=== PATIENT | male | born 1955 | race African-American/Black ===

== ENCOUNTER → 2019-01-16 | Day surgery (SDC) | payer BC ==
[~2019-01-16] MED LIST: CARV25TA PO; HEPARIN PF 500 UNIT/5 ML DISP.SYRIN. IVP ONE; HEPARIN PF 500 UNIT/5 ML DISP.SYRIN. ONE; INSU100I32 SQ; IV RINGERS,LACTATED 1000ML 1,000 ML IV SCH; LIDOCAINE 1% PF 2 ML VIAL. ID PRN; LIDOCAINE 2% PF 5 ML VIAL. ONE; METF10007 PO; MIDAZOLAM HCL/PF 2 MG/2 ML VIAL. IV PRN; PROPOFOL 20 ML IV ONE; SITA100T PO; ceFAZolin IM 1 GM VIAL IM ONE; fentaNYL PF VIAL 100 MCG/2 ML VIAL IV PRN
[2019-01-16 11:37] VITALS: BP 160/73
--- NOTE | 2019-01-16 22:20 | CONS ---
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 HISTORY OF PRESENT ILLNESS: This is a 64-year-old -Stateless male with past medical history significant for organic heart disease, diabetes, and hypertension. He was recently diagnosed with squamous cell cancer of the tonsil, undergoing treatments of radiation chemo and is having difficulties with swallowing and is here today for PEG placement. Risks and benefits of PEG placement including risk of hemorrhage, perforation, and cellulitis have been discussed and the patient is willing to proceed. Previous gallbladder surgery is noted, but no ulcer surgery is encountered and no previous history of hiatal hernias to preclude PEG placement elicited. PAST MEDICAL HISTORY: History of colonic polyps, hypertension, diabetes, organic heart disease, status post bypass surgery, and status post cholecystectomy. ALLERGIES: None. MEDICATIONS: Include Coreg, glargine insulin, metformin, and Januvia. SOCIAL HISTORY: He is a former drinker and smoker. FAMILY HISTORY: Noncontributory. REVIEW OF SYSTEMS: Per records. PHYSICAL EXAMINATION: GENERAL: Reveals a well-nourished and well-developed -Stateless male who is alert, cooperative, and in no acute distress. VITAL SIGNS: Temperature 97.7, pulse 60, and respirations 20. HEENT: Normocephalic and atraumatic head. Pupils and extraocular muscles are not tested. Sclerae anicteric. NECK: Supple. LUNGS: Clear. CARDIOVASCULAR: Reveals an S1, S2 without S3, S4, or appreciable murmur. ABDOMEN: Reveals a soft abdomen and normal bowel sounds without appreciable hepatosplenomegaly with the right upper quadrant cholecystectomy incision and the midline sternal incision from CABG is noted as well. Normoactive bowel sounds. EXTREMITIES: Reveals no cyanosis, clubbing, or edema. IMPRESSION AND PLAN: Oropharyngeal dysphagia with head and neck squamous cell tonsillar cancer. We will recommend PEG placement to facilitate feeding and care with undergoing radiation treatments. When these are completed and his oral intake has then returned to normal, then PEG can be removed as discussed with the patient. MARGY SOLER MD DR: [email or web address]/[email or web address] JOB#: [id number] / [id number] ecc MARILUZ URIOSTEGUI MD
== END ==
LOC: SURG 09:06
PROVIDERS: ATTEND Internal Medicine Gastroenterology
DX: K94.23 Gastrostomy malfunction (principal); K29.50 Unspecified chronic gastritis without bleeding; I11.9 Hypertensive heart disease without heart failure; E11.9 Type 2 diabetes mellitus without complications; Z86.010 Personal history of colon polyps; Z95.1 Presence of aortocoronary bypass graft; Z90.49 Acquired absence of other specified parts of digestive tract; Z87.891 Personal history of nicotine dependence; Z72.89 Other problems related to lifestyle; Z79.84 Long term (current) use of oral hypoglycemic drugs
CPT/HCPCS: 43246; J0690; J2001; J2704